=== PATIENT | male | born 1950 | race Caucasian/White ===

== ENCOUNTER 2024-10-05 08:35 | Day surgery (SDC) | payer OTHER, SELFPAY ==
[2024-10-03 13:28] LABS: Basophils # (Auto) 0.1 Thou/mm3 (0.0-0.2); Basophils % (Auto) 1 % (0-2.5); Eosinophils # (Auto) 0.3 Thou/mm3 (0.0-0.5); Eosinophils % (Auto) 4 % (0-10); Hematocrit 41.8 % (41.0-53.0); Hemoglobin 14.5 g/dL (13.5-16.0); Immature Granulocytes % (Auto) 0 % (0-0); Immature Granulocytes Auto 0.02 Thou/mm3 (0.00-0.00); Lymphocytes % (Auto) 24 % (10-50); Mean Corpuscular HGB Conc 34.7 g/dl (31.0-37.0); Mean Corpuscular Hemoglobin 32.3 pg (25.0-35.0); Mean Corpuscular Volume 93 fL (80-100); Monocytes # (Auto) 0.7 Thou/mm3 (0.0-0.8); Monocytes % (Auto) 8 % (0-12); Neutrophils # (Auto) 5.2 Thou/mm3 (1.8-7.7); Neutrophils % (Auto) 63 % (37-80); Nucleated Red Blood Cell % 0 /100 WBC (0); Platelet Count 171 Thou/mm3 (140-440); RDW Standard Deviation 51.3 fL (35.1-43.9); Red Blood Count 4.49 Miln/mm3 (4.50-5.90); White Blood Count 8.2 Thou/mm3 (3.8-10.6)
[2024-10-03 13:37] LABS: Partial Thromboplastin Time 26.5 Seconds (22.0-36.0); Prothrombin Time 10.9 Seconds (9.0-12.2)
[2024-10-03 13:41] LABS: Anion Gap 5 (7-16); BUN/Creatinine Ratio 14 Ratio (12-20); Blood Urea Nitrogen 17 mg/dL (9-23); Calcium 8.9 mg/dL (8.3-10.6); Chloride 109 mMol/L (98-107); Creatinine (Component) 1.2 mg/dL (0.6-1.3); Glucose 133 mg/dL (74-106); Osmolality,Calculated 286 (275-295); Potassium 4.1 mMol/L (3.4-5.1); Sodium 142 mMol/L (136-145); eGFR > 60 See Note
[2024-10-03 15:29] VITALS: BMI 24.7
[2024-10-05] VITALS (20 sets, daily range): BP systolic 124–150; BP diastolic 59–105; PULSE 66–88; RESP 13–19; TEMP 36.8; O2SAT 93–98
--- NOTE | 2024-10-05 12:25 | PC.NURSE ---
Sheath pulled out at 11:52 pressure held for 20 minutes and removed manual pressure at 12:12 no bleeding or hematoma, tegaderm is covered withgauze, clean dry and intact doppler on right dorsalis pedis heard, weak but can be heard will continue to monitor
--- NOTE | 2024-10-06 09:09 | ESOP_ITS ---
RE: DIANA LOPEZ : 1950 DATE OF OPERATION: 10/05/2024 REFERRING PHYSICIAN: Dr. Eldon Pérez, [facility] in [place]. PROCEDURE PERFORMED: 1. Left heart catheterization. 2. LV angiography. 3. Selective left and right coronary angiography. 4. Selective right femoral arterial angiography. 5. Conscious sedation monitoring. INDICATIONS FOR PROCEDURE: The patient with history of chronic hypertension, history of hyperlipidemia, history of peripheral vascular disease requiring surgery as well as endovascular procedure on the left femoral area. The patient is having symptoms of exertional dyspnea and adenosine stress Cardiolite myocardial perfusion. Imaging study showed fixed and partially reversible inferoapical left ventricular perfusion defect. DETAILS OF THE PROCEDURE: After explaining the procedure in detail to the patient and after obtaining appropriate consent, the patient was given intravenous total of 2 mg of Versed and 50 mcg of intravenous fentanyl before and during the procedure. The right groin area was prepped with antiseptic solution. Local anesthetic 2% lidocaine was used and right femoral artery was punctured by Seldinger technique and a Hemoclip sheath size 6 Zimbabwean was put in the right femoral artery. Through the sheath, a pigtail catheter size 6 [place]an was advanced and positioned in the ascending aorta. Aortic pressure was recorded and catheter was placed across the aortic valve into the left ventricle. Left ventricular pressure was recorded and LV angiography was performed in BADILLO view using 36 mL of dye at a rate of 12 mL per second over a period of 3 seconds. After the left ventricular angiography, the pullback pressure recorded from left ventricle into the aorta. The pigtail catheter was exchanged with a preformed left coronary Donis catheter size 6-Zimbabwean JL4, which was advanced with the help of a J-wire and tip was tried to be positioned over left coronary ostium, though it was unsuccessful to cannulate the left main coronary artery with 6-Zimbabwean JL4 diagnostic catheter. Catheter at that time was changed to JL3.5 5-Zimbabwean catheter, which was able to be positioned over left coronary ostium. Dampening of the pressure was noted on cannulating the left main coronary artery with a 5-Zimbabwean catheter. A left coronary angiography was performed in several different views. After the left coronary angiography, the catheter was pulled out and was exchanged with JR4 diagnostic 6-Zimbabwean catheter. Several tries were given to cannulate the right coronary artery, though unsuccessful, catheter at that time was changed to Pedro right coronary catheter size 6-Zimbabwean, which was again tried to cannulate the right coronary ostium, though difficulty was noted as the right coronary artery apparently is calcified and totally occluded at its ostium with collateral filling from the left coronary system. RESULTS OF PROCEDURE: As follows: The hemodynamic data showed aortic pressure 106/39 with a mean of 60. The left ventricular pressure is 124/5. Post angiography, left ventricular pressure is 101/8. There is no gradient noted across the aortic valve on pullback pressure. The left ventricular angiography showed normal-sized left ventricle with heavily calcified mitral valve annulus and mild mid to distal inferior wall left ventricular hypokinesis. Overall, good left ventricular systolic function is noted with ejection fraction of 60%. No evidence of mitral regurgitation is noted. The coronary angiography showed calcification of the proximal right as well as left coronary arteries. The left main coronary artery shows 90% ostial stenosis with dampening of the blood pressure on cannulation with 5-Zimbabwean catheter. The left anterior descending coronary artery shows mild luminal irregularity with 30% stenosis in its mid portion. The diagonal and septal branches are normal. The left anterior descending coronary artery wraps around left ventricular apex and is giving collateral to the distal right coronary artery. The circumflex coronary artery is normal. The right coronary distally is filling from the left coronary system. The right coronary angiography showed possible total occlusion at its ostium with calcification of the proximal right coronary artery and distal filling of the right coronary artery from the left coronary system. The right femoral arterial angiography showed calcification with diffuse luminal irregularity and 50% stenosis in mid to distal portion of the right common femoral artery. The arterial puncture site is above the bifurcation of the right common femoral artery. FINAL IMPRESSION: 1. Severe coronary artery disease with 90% ostial stenosis of the left main coronary artery, 100% occlusion of the ostial right coronary artery with left as well as right coronary calcification and 30% stenosis of the mid left anterior descending coronary artery. Normal left circumflex coronary artery is noted. 2. Mild mid to distal inferior wall left ventricular hypokinesis with left ventricular ejection fraction of 60%. 3. Heavily calcified mitral valve annulus. 4. Heavily calcified with 50% stenosis of the mid to distal right common femoral artery. RECOMMENDATIONS: The patient is recommended cardiothoracic surgery evaluation for possible coronary artery bypass graft surgery. cc: Eldon Pérez DT: 11:47:40 TT: 15:09:00 Ref: [id number] - TID: [id number]
== END 2024-10-05 18:05 | disposition home or self-care (01) ==
PROVIDERS: PCP Family Medicine; Referring Provider Internal Medicine Cardiovascular Disease; Visit Provider Internal Medicine Cardiovascular Disease
PROC: (CPT 93458; principal; 2024-10-05 10:00)
DX: I25.10 Atherosclerotic heart disease of native coronary artery without angina pectoris (principal); E78.5 Hyperlipidemia, unspecified; I10 Essential (primary) hypertension; I73.9 Peripheral vascular disease, unspecified
CPT/HCPCS: 93458; 36415; 80048; 85025; 85610; 85730; 99152; 99153; A4649; C1894; J0171; J0461; J1643; J2250; J2310; J2371; J3010; J3490; Q9967